=== PATIENT | female | born 1955 | race Caucasian/White ===

== ENCOUNTER 2017-10-08 22:01 | Emergency (ER) | payer OTHER ==
[~2017-10-08] VITALS: Ht 162.6 cm; Wt 72.6 kg
[2017-10-08 22:44] VITALS: BP 137/62
--- NOTE | 2017-10-09 01:00 | NUR ---
WENT TO CALL FOR PT. NO ANSWER
--- NOTE | 2017-10-09 01:23 | NUR ---
WENT TO TO CALL PATIENT AND WAS TOLD BY THE [facility] DESK THAT PATIENT LEFT 1 HOUR AGO. WILL D/C FROM SYSTEM
== END 2017-10-09 01:25 | disposition left against medical advice (07) ==
LOC: ER 22:02
DX: Z53.21 Procedure and treatment not carried out due to patient leaving prior to being seen by health care provider (principal)
CPT/HCPCS: A4606; Z7610

== ENCOUNTER 2017-10-09 16:02 | Emergency (ER) | payer OTHER ==
[~2017-10-09] VITALS: Ht 152.4 cm; Wt 72.6 kg
[2017-10-09 16:02] VITALS: BP 126/68
== END 2017-10-09 17:10 | disposition home or self-care (01) ==
LOC: ER 16:09
DX: L29.9 Pruritus, unspecified (principal); E78.5 Hyperlipidemia, unspecified; I10 Essential (primary) hypertension; K21.9 Gastro-esophageal reflux disease without esophagitis; F32.9 Major depressive disorder, single episode, unspecified; G47.30 Sleep apnea, unspecified
CPT/HCPCS: 99283; A4606; Z7610

== ENCOUNTER 2018-12-10 10:38 | Emergency (ER) | payer MEDICARE, MEDICAID ==
[~2018-12-10] VITALS: Ht 152.4 cm; Wt 69.4 kg
--- NOTE | 2018-12-10 10:52 | NUR ---
CAME IN FOR LEFT LOWER BACK PAIN STARTED YESTERDAY 11/25 PS, DENIES INJURY/TRAUMA. TO ER BED 10, HOOKED TO MONITOR, PROVIDED W WARM BLANKET, AWAITING MD [email or web address].
--- NOTE | 2018-12-10 11:11 | NUR ---
DR STRINGER AT BEDSIDE FOR EVAL
[2018-12-10] MEDS ORDERED: KETOROLAC TROMETHAMINE INJ 30 MG/ML VIAL ONE (11:17)
[2018-12-10 11:30] LABS: APPEARANCE,URINE Clear (CLEAR); BILIRUBIN,URINE Negative (NEGATIVE); BLOOD, URINE Negative Ery/uL (NEGATIVE); COLOR,URINE Yellow (YELLOW); KETONES,URINE Negative (NEGATIVE); LEUKOCYTE ESTERASE ,URINE Moderate (NEGATIVE); NITRITE, URINE Negative (NEGATIVE); PROTEIN,URINE Negative (NEGATIVE); UGLUCOSE Negative (NEGATIVE); UROBILINOGEN,URINE 0.2 EU/dL (0.2)
[2018-12-10] MEDS ORDERED: KETOROLAC TROMETHAMINE INJ 60 MG/2 ML VIAL IM ONE (11:30)
[2018-12-10 11:36] LABS: BACTERIA,URINE Few /HPF (None Seen); RBC,URINE 0-2 /HPF (0-2); SQUAMOUS EPITHELIAL CELL,UR Few /HPF (None Seen)
--- NOTE | 2018-12-10 12:19 | NUR ---
Patient discharged to home in stable condition. Written and verbal after care instructions given. Patient verbalizes understanding of instruction.
[2018-12-10 12:21] VITALS: BP 120/66
== END 2018-12-10 12:23 | disposition home or self-care (01) ==
LOC: ER 10:38
DX: M54.5 Low back pain (principal); I10 Essential (primary) hypertension; E78.5 Hyperlipidemia, unspecified; K21.9 Gastro-esophageal reflux disease without esophagitis; F32.9 Major depressive disorder, single episode, unspecified
CPT/HCPCS: 81001; 96372; 99283; J1885; 81000-TC

== ENCOUNTER 2022-03-01 10:30 | Emergency (ER) | payer MEDICARE, BC, OTHER ==
[~2022-03-01] VITALS: Ht 157.5 cm; Wt 63.5 kg
--- NOTE | 2022-03-01 10:40 | NUR ---
BIBS W/ C/O LOWER ABDOMEN/LOWER BACK PAIN, DYSURIA SINCE 02/24/22; PT TAKING ANTIBIOTIC SINCE 02/26/22 W/ NO RELIEF. TO ER BED 9.
--- NOTE | 2022-03-01 10:51 | NUR ---
URINE SAMPLE COLLECTED AND SENT TO LAB.
[2022-03-01 11:03] LABS: BILIRUBIN,URINE 1+ (NEGATIVE); COLOR,URINE YELLOW (YELLOW); LEUKOCYTE ESTERASE ,URINE 3+ (NEGATIVE); NITRITE, URINE POSITIVE (NEGATIVE); PROTEIN,URINE 1+ mg/dl (NEGATIVE); UGLUCOSE NEGATIVE (NEGATIVE); UROBILINOGEN,URINE 0.2 EU/dL (0.2)
[2022-03-01 11:25] LABS: BACTERIA,URINE Moderate /HPF (None Seen); RBC,URINE 21-50 /HPF (0-2); SQUAMOUS EPITHELIAL CELL,UR Few /HPF (None Seen); WBC,URINE 21-50 /HPF (0-3)
[2022-03-01] MEDS ORDERED: KETOROLAC TROMETHAMINE INJ 30 MG/ML VIAL IV ONE (11:30)
[2022-03-01] MEDS ORDERED: CEFTRIAXONE 1 G in IV D5W 50 ML IV ONE (11:30)
[2022-03-01] MEDS ORDERED: IOHEXOL-300 100 ML VIAL IV ONE (11:36)
[2022-03-01] MEDS ORDERED: KETOROLAC TROMETHAMINE 15 MG/ML VIAL ONE (11:38)
--- NOTE | 2022-03-01 11:48 | NUR ---
IV LINE ESTABLISHED ON LAC #20, BLOOD DRAWN AND COLLECTED BY PHLEB AT BEDSIDE
--- NOTE | 2022-03-01 11:51 | NUR ---
PT TAKEN TO RADIOLOGY FOR CT
[2022-03-01 11:54] LABS: BASOPHILS % (AUTO) 0.3 % (0.0-2.0); EOSINOPHILS % (AUTO) 0.2 % (0.0-6.0); HEMATOCRIT 38 % (33-45); HEMOGLOBIN 12.7 g/dL (11.5-14.8); LYMPHOCYTES # (AUTO) 0.9 K/uL (0.8-4.8); LYMPHOCYTES % (AUTO) 11.3 % (20.0-44.0); MEAN CORPUSCULAR HGB CONC 34 g/dl (31.0-36.0); MEAN CORPUSCULAR VOLUME 85 fL (82-100); MONOCYTES # (AUTO) 0.6 K/uL (0.1-1.30); MONOCYTES % (AUTO) 7.9 % (2.0-12.0); NEUTROPHILS # (AUTO) 6.6 K/uL (1.8-8.9); NEUTROPHILS % (AUTO) 80.3 % (43.0-81.0); PLATELET COUNT (AUTO) 221 K/uL (150-450); RED BLOOD CELL COUNT(AUTO) 4.39 MIL/uL (4.0-5.2); WHITE BLOOD COUNT (AUTO) 8.1 K/uL (4.3-11.0)
[2022-03-01 12:02] LABS: CREATININE 0.8 mg/dL (0.6-1.3)
[2022-03-01] MEDS ORDERED: CIPR250T4 PO (13:17)
[2022-03-01] MEDS ORDERED: PHEN-705 PO (13:17)
--- NOTE | 2022-03-01 13:30 | NUR ---
IV removed. Catheter intact and site benign. Pressure and 4x4 applied to site. No bleeding noted.Patient discharged to home in stable condition. Written and verbal after care instructions given. Patient verbalizes understanding of instruction.
--- NOTE | 2022-03-01 13:37 | NUR ---
Patient discharged to home in stable condition. Written and verbal after care instructions given. Patient verbalizes understanding of instruction.
[2022-03-01 13:38] VITALS: BP 130/67
== END 2022-03-01 13:38 | disposition home or self-care (01) ==
LOC: ER 10:38
DX: N39.0 Urinary tract infection, site not specified (principal); I10 Essential (primary) hypertension; E78.5 Hyperlipidemia, unspecified; K21.9 Gastro-esophageal reflux disease without esophagitis; F32.A Depression, unspecified; Z79.899 Other long term (current) drug therapy
CPT/HCPCS: 99285; 74177; 96365; 96375; 85025; 80048; 87077; 87086; 87186; 81001; 36415; J0696; J7060; Q9967; J1885